=== PATIENT | male | born 1930 | race Caucasian/White ===

== ENCOUNTER 2018-03-11 09:34 | Emergency (ER) | payer OTHER ==
[2018-03-11] MEDS ORDERED: LIDOCAINE 2% MPF 5 ML VIAL ONE (10:49)
--- NOTE | 2018-03-11 11:24 | RAD REPORT ---
EXAM DESCRIPTION: RAD - Hand Right 3 View - 03/11/2018 11:16 am CLINICAL HISTORY: Laceration. COMPARISON: None. FINDINGS: Tuft fracture involves the distal first digit. Adjacent soft tissue swelling is noted. No radiopaque foreign body identified. 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 IMPRESSION: Tuft fracture involving the distal first digit.
[2018-03-11] MEDS ORDERED: TETANUS & DIPHTHERIA TOX,ADULT 0.5 ML VIAL ONE (13:08)
--- NOTE | 2018-03-11 13:27 | ER ---
Nurse's Notes [facility] Name: Kit Esposito Age: 87 yrs Sex: Male : 1930 Arrival Date: 03/11/2018 Time: 09:40 Bed 11 Private MD: out of town, doctor Diagnosis: Tuft fracture right first digit. ;finger laceration Presentation: 03/11 09:54 Presenting complaint: Patient states: i hurt my R thumb on a grinding disc about an hj hour ago; currently taking aspirin;. Transition of care: patient was not received from another setting of care. Onset of symptoms was March 11, 2018. Care prior to arrival: None. 09:54 Method Of Arrival: Ambulatory hj 09:54 Acuity: VALDEZ 4 hj 10:00 Initial Sepsis Screen: Does the patient meet any 2 criteria? No. Patient's initial iw sepsis screen is negative. Does the patient have a suspected source of infection? No. Patient's initial sepsis screen is negative. Triage Assessment: 09:56 General: Appears in no apparent distress. uncomfortable, Behavior is calm, cooperative, hj appropriate for age. Pain: Complains of pain in palmar aspect of distal phalanx of right thumb. Historical: - Allergies: 09:55 Sulfa (Sulfonamide Antibiotics); hj - Home Meds: 09:55 amlodipine 10 mg tab 1 tab once daily [Active]; aspirin 81 mg Oral chew 1 tab once hj daily [Active]; metoprolol tartrate 25 mg Oral tab 1 tab once daily [Active]; - PMHx: 09:55 Multiple Sclerosis; Hypertension; hj - PSHx: 09:55 Kidney stents; hj - Immunization history:: Adult Immunizations unknown. - Social history:: Smoking status: Patient uses tobacco products. Screenin:00 Abuse screen: Denies threats or abuse. Denies injuries from another. Nutritional iw screening: No deficits noted. Tuberculosis screening: No symptoms or risk factors identified. Fall Risk None identified. Assessment: 10:15 General: Appears in no apparent distress. Behavior is calm, cooperative. Neuro: Level iw of Consciousness is awake, alert, obeys commands, Oriented to person, place. Cardiovascular: Patient's skin is warm and dry. Respiratory: Respiratory effort is even, unlabored, Respiratory pattern is regular. Derm: Skin is pink, warm \T\ dry. normal. Musculoskeletal: Range of motion: intact in all extremities. Injury Description: Laceration sustained to right thumbnail and dorsal aspect of distal phalanx of right thumb and palmar aspect of distal phalanx of right thumb is 0.5 to 2.5 cm long, was sustained less than 30 minutes ago. a small amount of bleeding noted at this time. Vital Signs: 09:56 BP 134 / 67; Pulse 59; Resp 18; Temp 97.6(TE); Pulse Ox 100% on R/A; Weight 77.11 kg; hj Height 5 ft. 8 in. (172.72 cm); Pain 6/10; 09:56 Body Mass Index 25.85 (77.11 kg, 172.72 cm) hj ED Course: 09:40 Patient arrived in ED. mr 09:41 out of town, doctor is Private Physician. mr 09:55 Triage completed. hj 09:56 Arm band placed on left wrist. hj 10:15 Patient has correct armband on for positive identification. iw 10:18 Rodrigo Mayes MD is Attending Physician. ps1 10:28 Johanny Weir, GLORY is Primary Nurse. iw 10:50 X-ray completed. Portable x-ray completed in exam room. Patient tolerated procedure sw well. 11:17 Hand Right 3 View XRAY In Process Unspecified. EDMS 12:50 Assist provider with laceration repair on dorsal aspect of distal phalanx of right iw thumb and palmar aspect of distal phalanx of right thumb and right thumbnail that was 2.5 cm. or less using sutures. Set up tray. Performed by Rodrigo Mayes MD Dressed with 4X4s, Neosporin, Patient tolerated well. Patient did not have IV access during this emergency room visit. Administered Medications: 13:24 Drug: Tetanus-Diphtheria Toxoid Adult 0.5 ml {Ice Maker: [employer]. Exp: iw 04/24/2018. Lot #: [id number]. } Route: IM; Site: right deltoid; 14:00 Follow up: Response: No adverse reaction iw Outcome: 13:26 Discharge ordered by . ps1 13:52 Discharged to home via wheelchair, with family. iw 13:52 Condition: good 13:52 Discharge instructions given to patient, Instructed on discharge instructions, follow up and referral plans. wound care, Demonstrated understanding of instructions, follow-up care, medications, wound care, Prescriptions given X 3. 13:54 Patient left the ED. iw Signatures: Dispatcher [employer] EDMS Corrina Olvera Irene, RN Rebeca Garcia Henry, RN RN hj Singer, Phillip, MD MD ps1 Corrections: (The following items were deleted from the chart) 09:58 09:56 Pulse 59bpm; Resp 18bpm; Pulse Ox 100% RA; Temp 97.6F Temporal; 77.11 kg; Height hj 5 ft. 8 in.; BMI: 25.8; Pain 6/10; hj
--- NOTE | 2018-03-11 13:27 | EDPHYS ---
Physician Documentation [facility] Name: Kit Esposito Age: 87 yrs Sex: Male : 1930 Arrival Date: 03/11/2018 Time: 09:40 Bed 11 Private MD: out of town, doctor ED Physician Rodrigo Mayes HPI: 03/11 13:38 This 87 yrs old Male presents to ER via Ambulatory with complaints of Finger ps1 laceration. 13:38 The patient or guardian reports injury, a laceration. The complaints affect the dorsal ps1 aspect of distal phalanx of right thumb, palmar aspect of distal phalanx of right thumb and right thumbnail. Context: The problem was sustained at home, at a injured by handsaw. . Onset: The symptoms/episode began/occurred just prior to arrival. Modifying factors: the symptoms are aggravated by movement. Associated signs and symptoms: Pertinent positives: nailbed injury. Severity of symptoms: At their worst the symptoms were moderate. Historical: - Allergies: 09:55 Sulfa (Sulfonamide Antibiotics); hj - Home Meds: 09:55 amlodipine 10 mg tab 1 tab once daily [Active]; aspirin 81 mg Oral chew 1 tab once hj daily [Active]; metoprolol tartrate 25 mg Oral tab 1 tab once daily [Active]; - PMHx: 09:55 Multiple Sclerosis; Hypertension; hj - PSHx: 09:55 Kidney stents; hj - Immunization history:: Adult Immunizations unknown. - Social history:: Smoking status: Patient uses tobacco products. ROS: 13:38 Constitutional: Negative for fever, chills, and weight loss, Eyes: Negative for injury, ps1 pain, redness, and discharge, Cardiovascular: Negative for chest pain, palpitations, and edema, Respiratory: Negative for shortness of breath, cough, wheezing, and pleuritic chest pain, Abdomen/GI: Negative for abdominal pain, nausea, vomiting, diarrhea, and constipation, Skin: Negative for injury, rash, and discoloration, Neuro: Negative for headache, weakness, numbness, tingling, and seizure, Psych: Negative for depression, anxiety, suicide ideation, homicidal ideation, and hallucinations. 13:38 MS/extremity: Positive for decreased range of motion, deformity, laceration, pain. Exam: 13:38 Constitutional: This is a well developed, well nourished patient who is awake, alert, ps1 and in no acute distress. Head/Face: Normocephalic, atraumatic. Eyes: Pupils equal round and reactive to light, extra-ocular motions intact. Lids and lashes normal. Conjunctiva and sclera are non-icteric and not injected. ENT: Nares patent. No nasal discharge, no septal abnormalities noted. Tympanic membranes are normal and external auditory canals are clear. Oropharynx with no redness, swelling, or masses, exudates, or evidence of obstruction, uvula midline. Mucous membranes moist. Neck: Trachea midline, no thyromegaly or masses palpated, and no cervical lymphadenopathy. Supple, full range of motion without nuchal rigidity, or vertebral point tenderness. No Meningismus. Cardiovascular: Regular rate and rhythm. No gallops, murmurs, or rubs. Normal PMI, no JVD. No pulse deficits. Respiratory: Lungs have equal breath sounds bilaterally, clear to auscultation and percussion. No rales, rhonchi or wheezes noted. No increased work of breathing, no retractions or nasal flaring. Abdomen/GI: Soft, non-tender, with normal bowel sounds. No distension or tympany. No guarding or rebound. No evidence of tenderness throughout. Back: No spinal tenderness. No costovertebral tenderness. Full range of motion. Skin: Warm, dry with normal turgor. Normal color with no rashes, no lesions, and no evidence of cellulitis. Neuro: Awake and alert, GCS 15, oriented to person, place, time, and situation. Cranial nerves II-XII grossly intact. Sensory grossly intact. Psych: Awake, alert, with orientation to person, place and time. Behavior, mood, and affect are within normal limits. 13:38 Musculoskeletal/extremity: Extremities: grossly normal except: noted in the right thumbnail and dorsal aspect of distal phalanx of right thumb and right hand and palmar aspect of distal phalanx of right thumb: decreased ROM, laceration, pain. Vital Signs: 09:56 BP 134 / 67; Pulse 59; Resp 18; Temp 97.6(TE); Pulse Ox 100% on R/A; Weight 77.11 kg; hj Height 5 ft. 8 in. (172.72 cm); Pain 6/10; 09:56 Body Mass Index 25.85 (77.11 kg, 172.72 cm) hj Laceration: 13:38 Wound Repair of 4cm ( 1.6in ) subcutaneous laceration to right thumbnail and dorsal ps1 aspect of distal phalanx of right thumb and palmar aspect of distal phalanx of right thumb. Irregularly shaped.. Skin/tissue flap noted.. Distal neuro/vascular/tendon intact. Anesthesia: Digital block administered with 4 mls of 2% lidocaine. Wound prep: Extensive cleansing, Wound irrigation, Wound debrided, Wound explored moderately. Subcutaneous tissue closed with 3 4-0 Vicryl using simple sutures and sterile technique. Skin closed with 8 5-0 Prolene using simple sutures and sterile technique. Dressed with Bacitracin, tube gauze. Patient tolerated well. MDM: 10:46 Patient medically screened. ps1 13:44 Data reviewed: vital signs, nurses notes, radiologic studies, plain films. ps1 03/11 10:39 Order name: Hand Right 3 View XRAY; Complete Time: 11:28 ps1 Administered Medications: 13:24 Drug: Tetanus-Diphtheria Toxoid Adult 0.5 ml {Special Ed Assistant: [employer]. Exp: iw 04/24/2018. Lot #: [id number]. } Route: IM; Site: right deltoid; 14:00 Follow up: Response: No adverse reaction iw Disposition: 03/11/18 13:26 Discharged to Home. Impression: Tuft fracture right first digit. , finger laceration. - Condition is Stable. - Discharge Instructions: Finger Fracture, Laceration Care, Adult, [id number]. - Prescriptions for Keflex 500 mg Oral Capsule - take 1 capsule by ORAL route every 12 hours for 10 days; 20 capsule. Tylenol- Codeine #3 300-30 mg Oral Tablet - take 2 tablet by ORAL route every 6 hours As needed; 30 tablet. Zofran 4 mg Oral Tablet - take 1 tablet by ORAL route every 12 hours As needed; 20 tablet. - Medication Reconciliation Form, Thank You Letter, Antibiotic Education, Prescription Opioid Use form. - Follow up: Emergency Department; When: 10 - 14 days; Reason: Worsening of condition, Staple/Suture removal. Follow up: Private Physician; When: As needed; Reason: Recheck today's complaints, Continuance of care, Re-evaluation by your physician. - Problem is new. - Symptoms have improved. Signatures: Dispatcher [employer] Johanny Lemus RN RN Garfield Jewell RN RN Rodrigo Mera MD MD ps1
[2018-03-11 14:03] VITALS: BP 134/67; TEMP 97.6; O2SAT 100
== END 2018-03-11 13:54 | disposition home or self-care (01) ==
LOC: ER 09:34
PROC: 0JQJ0ZZ Repair Right Hand Subcutaneous Tissue and Fascia, Open Approach (ICD-10-PCS; principal; 2018-03-11)
DX: S62.501A Fracture of unspecified phalanx of right thumb, initial encounter for closed fracture (principal); W29.8XXA Contact with other powered hand tools and household machinery, initial encounter; Y93.89 Activity, other specified; Y92.9 Unspecified place or not applicable; Z23 Encounter for immunization; Z88.2 Allergy status to sulfonamides; Z79.82 Long term (current) use of aspirin; Z72.0 Tobacco use; I10 Essential (primary) hypertension
CPT/HCPCS: 90714; 99284